=== PATIENT | male | born 1975 | race Caucasian/White ===

== ENCOUNTER 2018-03-10 11:55 | Outpatient (CLI) | payer BC, SELFPAY ==
[2018-03-10 07:49] LABS: Hemoglobin A1C 5.5 % (4.5-6.2)
[2018-03-10 08:10] LABS: Cholesterol 353 mg/dL (50-200); Glucose 107 mg/dL (70-100); HDL Cholesterol 40 mg/dL (40-60); LDL CHOLESTEROL 244 mg/dL (<100); Triglyceride 286 mg/dL (30-150)
== END 2018-03-10 12:15 ==
PROVIDERS: PCP Family Medicine; Visit Provider Family Medicine
DX: E78.5 Hyperlipidemia, unspecified (principal); R73.9 Hyperglycemia, unspecified
CPT/HCPCS: 36415; 80061; 82947; 83721; 83036

== ENCOUNTER 2019-03-20 07:11 | Outpatient (CLI) | payer BC, SELFPAY ==
[2019-03-20 08:08] LABS: Hemoglobin A1C 5.5 % (3.8-5.6)
[2019-03-20 08:17] LABS: Calculated LDL 129 mg/dL; Cholesterol 218 mg/dL (<200); Glucose 105 mg/dL (74-106); HDL Cholesterol 44 mg/dL (40-60); Triglyceride 226 mg/dL (<150)
== END 2019-03-20 07:31 ==
PROVIDERS: PCP Family Medicine; Visit Provider Family Medicine
DX: R07.89 Other chest pain (principal); E78.5 Hyperlipidemia, unspecified; R55 Syncope and collapse
CPT/HCPCS: 36415; 80061; 82947; 83036